=== PATIENT | male | born 1970 | race American Indian/Alaskan Native ===

== ENCOUNTER 2020-05-09 18:56 | Emergency (ER) | payer SELFPAY ==
[2020-05-09] MEDS ORDERED: DEXTROSE 50% IN WATER (25GM) 50 ML SYRINGE IV ONE (18:57)
--- NOTE | 2020-05-09 20:48 | Emergency Department Report ---
HPI - General Chief Complaint: Hypoglycemia Time Seen by Provider: 05/09/20 20:22 - HPI HPI: Room 37 The patient is a 49-year-old male present with a chief complaint of hyperglycemia. The patient states he awakened this morning at 07: 00 and ate breakfast which consisted of grits and eggs. The patient states at noon he went to sleep and he awakened at 13: 30 and ate grilled chicken. The patient states he then took his insulin at 14: 00 and lay down to watch television. At this point apparently the sister was having difficulty awakening him and EMS was called. EMS found patient hypoglycemic with a glucose of 29. Patient was administered D50 and is now alert and oriented and without complaints. Patient denies taking any oral hypoglycemics ED Past Medical Hx - Past Medical History Previous Medical History?: Yes Hx Hypertension: Yes Hx Diabetes: Yes - Surgical History Past Surgical History?: Yes Additional Surgical History: R hip sx, nose sx - Family History Family history: no significant - Social History Smoking Status: Never Smoker Substance Use Type: None (Denies illicit drug use) ED Review of Systems ROS: Stated complaint: LOW SUGAR Other details as noted in HPI Constitutional: no symptoms reported Eyes: denies: eye pain ENT: denies: throat pain Respiratory: no symptoms reported Cardiovascular: denies: chest pain Endocrine: other (Hypoglycemia) Gastrointestinal: denies: abdominal pain Genitourinary: denies: dysuria Musculoskeletal: denies: back pain Neurological: denies: headache Physical Exam - Physical Exam Vital Signs: Vital Signs 05/09/20 19:20 Temperature 98.4 F Pulse Rate 79 Respiratory 16 Rate Blood Pressure 143/78 O2 Sat by Pulse 99 Oximetry Physical Exam: GENERAL: The patient is well-developed well-nourished []. [] HEENT: Normocephalic. Atraumatic. Extraocular motions are intact. Patient has moist mucous membranes. NECK: Supple. Trachea midline CHEST/LUNGS: Clear to auscultation. There is no respiratory distress noted. HEART/CARDIOVASCULAR: Regular. There is no tachycardia. There is no gallop rub or murmur. ABDOMEN: Abdomen is soft, nontender. Patient has normal bowel sounds. There is no abdominal distention. SKIN: There is no rash. There is no edema. There is no diaphoresis. NEURO: The patient is awake, alert, and oriented. The patient is cooperative. The patient has no focal neurologic deficits. The patient has normal speech MUSCULOSKELETAL: There is no evidence of acute injury. ED Course Vital Signs 05/09/20 19:20 Temperature 98.4 F Pulse Rate 79 Respiratory 16 Rate Blood Pressure 143/78 O2 Sat by Pulse 99 Oximetry - Reevaluation(s) Reevaluation #1: 05/09/20 22:47 Accu-Chek 220 ED Medical Decision Making - Lab Data Result diagrams: 05/09/20 20:42 05/09/20 20:42 Laboratory Tests 05/09/20 05/09/20 05/09/20 20:08 20:42 20:42 WBC 7.9 RBC 4.87 Hgb 12.2 Hct 37.3 MCV 77 L MCH 25 L MCHC 33 RDW 15.2 Plt Count 208 Lymph % (Auto) 17.4 Greenlee % (Auto) 5.4 Eos % (Auto) 0.3 Baso % (Auto) 0.2 Lymph # (Auto) 1.4 Greenlee # (Auto) 0.4 Eos # (Auto) 0.0 Baso # (Auto) 0.0 Seg Neutrophils % 76.7 H Seg Neutrophils # 6.0 Sodium 141 Potassium 4.5 Chloride 108.1 H Carbon Dioxide 25 Anion Gap 12 BUN 29 H Creatinine 2.6 H Estimated GFR 32 BUN/Creatinine Ratio 11 Glucose 140 H POC Glucose 141 H Calcium 8.9 05/09/20 21:24 WBC RBC Hgb Hct MCV MCH MCHC RDW Plt Count Lymph % (Auto) Greenlee % (Auto) Eos % (Auto) Baso % (Auto) Lymph # (Auto) Greenlee # (Auto) Eos # (Auto) Baso # (Auto) Seg Neutrophils % Seg Neutrophils # Sodium Potassium Chloride Carbon Dioxide Anion Gap BUN Creatinine Estimated GFR BUN/Creatinine Ratio Glucose POC Glucose 142 H Calcium - Differential Diagnosis Hypoglycemia Critical care attestation.: If time is entered above; I have spent that time in minutes in the direct care of this critically ill patient, excluding procedure time. ED Disposition Clinical Impression: Hypoglycemia Disposition: DC-01 TO HOME OR SELFCARE Is pt being admited?: No Does the pt Need Aspirin: No Condition: Stable Instructions: Hypoglycemia, [id number] Additional Instructions: Return to the emergency department should you develop worsening symptoms, inability to tolerate food or liquids, high fever or any other concerns Referrals: PRIMARY CARE, [Primary Care Provider] - 3-5 Days Time of Disposition: 22:48
[2020-05-09 20:53] LABS: Basophils % (Auto) 0.2 % (0.0-1.8); Eosinophils % (Auto) 0.3 % (0.0-4.3); Hematocrit 37.3 % (35.5-45.6); Hemoglobin 12.2 gm/dl (11.8-15.2); Lymphocytes # (Auto) 1.4 K/mm3 (1.2-5.4); Lymphocytes % (Auto) 17.4 % (13.4-35.0); Mean Corpuscular HGB Conc 33 % (32-34); Mean Corpuscular Volume 77 fl (84-94); Monocytes # (Auto) 0.4 K/mm3 (0.0-0.8); Monocytes % (Auto) 5.4 % (0.0-7.3); Platelet Count 208 K/mm3 (140-440); Red Blood Count 4.87 M/mm3 (3.65-5.03); Red Cell Distribution Width 15.2 % (13.2-15.2)
[2020-05-09 21:15] LABS: Calcium 8.9 mg/dL (8.4-10.2)
[2020-05-09 23:12] VITALS: BP 136/78
== END 2020-05-09 23:05 | disposition home or self-care (01) ==
LOC: ED 18:56
DX: E11.65 Type 2 diabetes mellitus with hyperglycemia (principal); I10 Essential (primary) hypertension; Z79.899 Other long term (current) drug therapy
CPT/HCPCS: 36415; 80048; 82962; 85025